=== PATIENT | female | born 1960 | race Caucasian/White ===

== ENCOUNTER → 2019-06-01 21:06 | Outpatient (CLI) | payer SELFPAY ==
[2019-05-03 07:18] VITALS: BMI 27.3
[~2019-06-01 21:06] MED LIST: AMBIEN5 MG PO; BYSTOLIC5 MG PO; CELEXA20 MG PO; CONTRAVE PO; CRESTOR5 MG PO; GLUCOPHAGE500 MG PO; HYDROCODON-ACE1 EA10 PO; HYDROCODONE-APA1 TAB PO; LOPRESSOR25 MG PO; PROTONIX PO; PROTONIX40 MG PO; STOOL SOFTENER100 M1 PO; TAMOXIFEN CITRA20 MG PO; VITAMIN D2000 UNIT PO; ZOCOR20 MG PO
== END | disposition home or self-care (01) ==
LOC: D.LABREF 21:06
PROVIDERS: ATTEND Surgery
DX: N63.20 Unspecified lump in the left breast, unspecified quadrant (principal)